=== PATIENT | male | born 1955 | race Caucasian/White ===

== ENCOUNTER → 2017-12-10 | Outpatient (CLI) | payer BC | LOC: FIMAGING 17:13 | PROVIDERS: ATTEND Family Medicine Sports Medicine | DX: S93.122A Dislocation of metatarsophalangeal joint of left great toe, initial encounter (principal); M19.072 Primary osteoarthritis, left ankle and foot ==

== ENCOUNTER 2018-09-28 14:50 | Emergency (ER) | payer BC ==
--- NOTE | 2018-09-28 14:56 | EDPHY ---
H & P Time Seen by Provider: 09/28/18 14:56 HPI/ROS: Chief complaint. Shortness of breath, chest pressure HPI. Patient is 63-year-old male presents emergency department with off and on chest pressure and shortness of breath for 1 week. The pressure is located behind the sternum. There is no radiation. He still has slight retrosternal chest discomfort now. He notes his symptoms are worse with exertion. Today he was feeling well this morning and then took the dog out to the dog park at noon and was throwing a ball. After 2 or 3 throws he developed pressure behind the sternum and shortness of breath. He also noted slight dizziness. He had a similar episode this past weekend in a walk with his when they were walking slowly he had no symptoms however in the last 100 yd the left the dog off the leash and the patient ran after the dog and then developed chest pressure shortness of breath. Again sitting down and resting relieves his symptoms. No similar symptoms previously no fever cough. No unusual leg pain or swelling. He did have a heart scan 2 years ago that he reports to be normal. He did take aspirin this morning. ROS 10 systems were reviewed and negative with the exception of the elements mentioned in the history of present illness Past Medical/Surgical History: Denies past medical history Family history both parents developed heart disease including his mom having an MS and coronary artery bypass graft that he describes in their later years Social History: , nonsmoker, no alcohol Smoking Status: Never smoked Physical Exam: General Appearance: Alert well-developed male mild distress vital signs initially show a blood pressure of 181/120. Current blood pressure is 108/69 Eyes: Pupils equal and round no pallor or injection. ENT, Mouth: Mucous membranes are moist. Respiratory: There are no retractions, lungs are clear to auscultation. Cardiovascular: Regular rate and rhythm. Gastrointestinal: Abdomen is soft and nontender, no masses, bowel sounds normal. Neurological: Awake and alert, sensory and motor exams grossly normal. Skin: Warm and dry, no rashes. Musculoskeletal: Neck is supple nontender. Extremities symmetrical, full range of motion. Psychiatric: Patient is oriented X 3, there is no agitation. Constitutional: Initial Vital Signs Temperature (C) 36.7 C 09/28/18 14:52 Heart Rate 81 09/28/18 14:52 Respiratory Rate 16 09/28/18 14:52 Blood Pressure 181/120 H 09/28/18 14:52 O2 Sat (%) 94 09/28/18 14:52 O2 Delivery Mode Room Air Allergies/Adverse Reactions: No Known Allergies Allergy (Unverified 09/28/18 14:52) Home Medications: Medication Instructions Recorded NK [No Known Home Meds] 09/28/18 Medical Decision Making - Diagnostics EKG Interpretation: EKG interpreted by me shows normal sinus rhythm normal interval. Left axis deviation. QRS is normal. Slight ST depression in leads V3 through V6. No arrhythmia. The rate is 79. No old EKGs for comparison Imaging Results: Imaging Impressions Chest X-Ray 09/28/18 15:19 Impression: Nothing acute identified. One-view chest x-ray interpreted by me is normal Procedures: IV normal saline, monitor ED Course/Re-evaluation: Re-evaluation 4:00 p.m. Patient is stable and without discomfort currently. The patient and I discussed EKG, chest x-ray, lab work findings. We discussed treatment plan and I recommended admission for this patient. We discussed risks and benefits of admission versus outpatient management. I explained that I was concerned that the patient was having symptoms with exertion relieved by rest and that this may well represent acute coronary syndrome. The patient does not wish to be admitted and understands the risks of this. I recommended that we repeat EKG and troponin this afternoon in the emergency department and he does not wish to do this as he has a dog in the car. Again I did explain why the repeat troponin and EKG are important. [address] Goldberg for Cardiology Re-evaluation and update again at 4:45 p.m.. Patient does not wish to wait for cardiology call back. He does not want repeat troponin or EKG. Again risks and benefits are explained to the patient. He expresses understanding and agreement 4:50 p.m. I did speak to Dr. Goldberg who also felt admission was the right course. I discussed this with the patient. Dr. Goldberg will see him in the office tomorrow. Differential Diagnosis: I think this likely angina that the patient is experiencing. There is no evidence for pneumonia. Symptoms are not consistent with pulmonary embolus. He has chest discomfort on exertion and relieved by rest. I have recommended admission however he does not wish to wait or be admitted - Data Points Laboratory Results: Laboratory Results 09/28/18 15:15 09/28/18 15:15 09/28/18 09/28/18 09/28/18 15:15 15:15 15:08 WBC 5.24 10^3/uL 10^3/uL (3.80-9.50) RBC 5.04 10^6/uL 10^6/uL (4.40-6.38) Hgb 15.9 g/dL g/dL (13.7-17.5) Hct 44.8 % % (40.0-51.0) MCV 88.9 fL fL (81.5-99.8) MCH 31.5 pg pg (27.9-34.1) MCHC 35.5 g/dL g/dL (32.4-36.7) RDW 12.6 % % (11.5-15.2) Plt Count 145 10^3/uL L 10^3/uL (150-400) MPV 12.8 fL H fL (8.7-11.7) Neut % (Auto) 43.5 % % (39.3-74.2) Lymph % (Auto) 42.2 % % (15.0-45.0) [place] % (Auto) 9.9 % % (4.5-13.0) Eos % (Auto) 3.4 % % (0.6-7.6) Baso % (Auto) 0.8 % % (0.3-1.7) Nucleat RBC Rel Count 0.0 % % (0.0-0.2) Absolute Neuts (auto) 2.28 10^3/uL 10^3/uL (1.70-6.50) Absolute Lymphs (auto) 2.21 10^3/uL 10^3/uL (1.00-3.00) Absolute Monos (auto) 0.52 10^3/uL 10^3/uL (0.30-0.80) Absolute Eos (auto) 0.18 10^3/uL 10^3/uL (0.03-0.40) Absolute Basos (auto) 0.04 10^3/uL 10^3/uL (0.02-0.10) Absolute Nucleated RBC 0.00 10^3/uL 10^3/uL (0-0.01) Immature Gran % 0.2 % % (0.0-1.1) Immature Gran # 0.01 10^3/uL 10^3/uL (0.00-0.10) Sodium 141 mEq/L mEq/L (135-145) Potassium 3.8 mEq/L mEq/L (3.3-5.0) Chloride 107 mEq/L mEq/L (97-110) Carbon Dioxide 27 mEq/l mEq/l (22-31) Anion Gap 7 mEq/L mEq/L (6-14) BUN 19 mg/dL mg/dL (7-23) Creatinine 0.9 mg/dL mg/dL (0.7-1.3) Estimated GFR > 60 Glucose 98 mg/dL mg/dL (70-100) Calcium 8.9 mg/dL mg/dL (8.5-10.4) POC Troponin I 0.00 ng/mL ng/mL (0.00-0.08) NT-Pro-B Natriuret Pep 49 pg/mL pg/mL (0-125) Point of Care Test Results: Chemistry 09/28/18 15:08 POC Troponin I 0.00 ng/mL ng/mL (0.00-0.08) Departure - Departure Disposition: Home, Routine, Self-Care Clinical Impression: Chest pain Qualifiers: Chest pain type: unspecified Qualified Code(s): R07.9 - Chest pain, unspecified Condition: Good Instructions: Chest Pain (ED) Additional Instructions: Easy activity until see cardiology. No activity that his strenuous or brings on chest discomfort. Return to the emergency department for worsening chest pain or shortness of breath. Call Cardiology tomorrow to arrange outpatient evaluation Referrals: Jon Stephens MD [Primary Care Provider] - As per Instructions Dane Goldberg MD [Medical Doctor] - 1 day without fail
[2018-09-28 15:25] LABS: PLATELET COUNT 145 10^3/uL (150-400)
[2018-09-28 16:27] VITALS: BP 156/99
--- NOTE | 2018-09-28 20:38 | CPEKG ---
Test Reason : OPEN Blood Pressure : / mmHG Vent. Rate : 079 BPM Atrial Rate : 079 BPM P-R Int : 167 ms QRS Dur : 103 ms QT Int : 379 ms P-R-T Axes : 031 -23 001 degrees QTc Int : 435 ms Sinus rhythm Borderline left axis deviation Low voltage, precordial leads Confirmed by Candido De León ([id number]) on 09/28/2018 8:38:01 PM Referred By: Confirmed By:Candido De León
== END 2018-09-28 17:18 | disposition home or self-care (01) ==
DX: R07.9 Chest pain, unspecified (principal); R06.02 Shortness of breath; Z82.49 Family history of ischemic heart disease and other diseases of the circulatory system
CPT/HCPCS: 84484-PO

== ENCOUNTER 2018-09-29 16:40 | Inpatient (IN) | payer BC ==
[2018-09-29] MEDS ORDERED: ACETAMINOPHEN 325 MG TAB PO PRN (16:56)
[2018-09-29] MEDS ORDERED: ONDANSETRON DISINTEGRATING 4 MG TAB PO PRN (16:56)
[2018-09-29] MEDS ORDERED: NITROGLYCERIN 0.4 MG BTL SL PRN (16:56)
[2018-09-29] MEDS ORDERED: ONDANSETRON 4 MG/2 ML VIAL IVP PRN (16:56)
[2018-09-29] MEDS ORDERED: TEMAZEPAM 15 MG CAP PO PRN (16:56)
[2018-09-29] MEDS ORDERED: ASPIRIN 325 MG TAB PO ONE (17:01)
[2018-09-29 18:25] LABS: PLATELET COUNT 162 10^3/uL (150-400)
[2018-09-29 18:40] LABS: INR 0.88 (0.83-1.16); PROTIME(PATIENT) 12.2 SEC (12.0-15.0)
[2018-09-29] MEDS: METOPROLOL TARTRATE 25 MG TAB PO SCH (20:50)
[2018-09-30] MEDS ORDERED: NS 1,000 ML IV ONE ×2 (06:00→11:00)
[2018-09-30] MEDS ORDERED: diphenhydrAMINE 25 MG CAP PO ONE (06:00)
[2018-09-30] MEDS ORDERED: DIAZEPAM 5 MG TAB PO ONE (06:00)
[2018-09-30] MEDS ORDERED: FAMOTIDINE 20 MG TAB PO ONE (06:00)
[2018-09-30] MEDS ORDERED: IOPAMIDOL (ISOVUE-370) 150 ML BTL IV ONE ×2 (07:55→09:31)
[2018-09-30] MEDS ORDERED: fentaNYL 100 MCG/2 ML INJ ONE ×2 (07:55→09:23)
[2018-09-30] MEDS ORDERED: LIDOCAINE 1% 300 MG/30 ML SDV ONE (07:55)
[2018-09-30] MEDS ORDERED: MIDAZOLAM 2 MG/2 ML VIAL ONE ×2 (07:55→09:23)
--- NOTE | 2018-09-30 08:20 | PDPROPOC ---
Sedation Plan of Care Sedation Plan of Care: vital signs stable, mental status noted, patient educated of risks, benefits, alternatives, patient can tolerate sedation ASA Classification: ASA 2 Planned drugs: fentanyl, midazolam Mallampati Score: Class 2 Mallampati Reference Image: Patient passed 3-3-2 rule?: Yes
--- NOTE | 2018-09-30 08:21 | PDHPUP ---
History & Physical Update H&P update statement: This history and physical update is based on an assessment of the patient which was completed after admission or registration (within 24 hours), but prior to the surgery/procedure. H&P update: H&P reviewed & patient examined, no change in patient's condition since H&P completed
[2018-09-30] MEDS ORDERED: BIVALIRUDIN 250 MG/5 ML VIAL IV ONE ×2 (08:51→09:39)
[2018-09-30] MEDS ORDERED: ASPIRIN EC 325 MG TAB PO SCH (09:00)
[2018-09-30] MEDS ORDERED: ATROPINE SULFATE 1 MG/10 ML SYR ONE ×2 (09:27→18:37)
[2018-09-30] MEDS ORDERED: EPINEPHrine 1 MG/10 ML SYR IVP ONE (09:27)
[2018-09-30] MEDS ORDERED: NITROGLYCERIN/D5W 50 MG/250 ML BOTTLE IV ONE ×2 (09:28→10:56)
[2018-09-30] MEDS ORDERED: LABETALOL HCL 5 MG/ML 20 ML MDV ONE (09:34)
[2018-09-30] MEDS ORDERED: PROTAMINE SULFATE 50 MG/5 ML VIAL IVP ONE (10:54)
[2018-09-30] MEDS ORDERED: MILRINONE/DEXTROSE/100 ML BAG IV ONE (10:54)
[2018-09-30] MEDS ORDERED: CALCIUM CHLORIDE 1 GM/10 ML INJ ONE ×2 (10:54→10:56)
[2018-09-30] MEDS ORDERED: niCARdipine/NACL/200 ML BAG IV ONE (10:55)
[2018-09-30] MEDS ORDERED: ADENOSINE 6 MG/2 ML VIAL ONE (10:55)
[2018-09-30] MEDS ORDERED: AMIODARONE HCL 150 MG/3 ML VIAL ONE ×2 (10:55→10:57)
[2018-09-30] MEDS ORDERED: DOPamine/DEXTROSE 400 MG/250 ML BAG IV ONE (10:55)
[2018-09-30] MEDS ORDERED: HEPARIN 10,000 UNIT/10 ML MDV (1,000 UNIT/ML) ONE ×2 (10:55→10:56)
[2018-09-30] MEDS ORDERED: NA BICARBONATE 50 MEQ/50 ML VIAL ONE (10:55)
[2018-09-30] MEDS ORDERED: ALBUMIN 5% 250 ML BOTTLE IV ONE ×2 (10:56→11:58)
[2018-09-30] MEDS ORDERED: ceFAZolin 1 GM VIAL ONE (10:56)
[2018-09-30] MEDS ORDERED: LIDOCAINE 2% 100 MG/5 ML SYR ONE (10:56)
[2018-09-30] MEDS ORDERED: CITRATE DEXTROSE SOLN 500 ML BAG ONE (10:56)
[2018-09-30] MEDS ORDERED: methylPREDNISolone SOD SUCC 1 GM/8 ML VIAL ONE (10:57)
[2018-09-30] MEDS ORDERED: MAGNESIUM SULFATE 1 GM/2 ML VIAL ONE (10:57)
[2018-09-30] MEDS ORDERED: AMINOCAPROIC ACID 5 GM/20 ML VIAL IV ONE (11:00)
[2018-09-30] MEDS ORDERED: CITRATE DEXTROSE SOLN 500 ML BAG MISC ONE (11:00)
[2018-09-30] MEDS ORDERED: CARDIOPLEGIA DEL NIDO SOLN 1,052.8 ML PF ONE (11:00)
[2018-09-30] MEDS ORDERED: MANNITOL 25% 12.5 GM/50 ML VIAL IVP ONE (11:00)
[2018-09-30] MEDS ORDERED: VERAPAMIL 5 MG, NITROGLYCERIN 2.5 MG, HEPARIN 500 UNIT, SODIUM BICARBONATE 0.2 MEQ in L... MISC ONE ×2 (11:00→12:12)
[2018-09-30] MEDS ORDERED: NOREPINEPHRINE BITARTRATE 16 MG in NS 250 ML IV ONE (11:00)
[2018-09-30] MEDS ORDERED: SODIUM BICARBONATE 20 MEQ, LIDOCAINE 1% 10 ML in NORMOSOL-R 1,000 ML MISC ONE (11:00)
[2018-09-30] MEDS ORDERED: INSULIN REGULAR HUMAN 100 UNIT in NS 100 ML IV ONE (11:00)
[2018-09-30] MEDS ORDERED: ceFAZolin 2 GM/DEXTROSE 100 ML IV ONE (11:00)
[2018-09-30] MEDS ORDERED: LIDOCAINE 1% 5 ML SDV ID PRN (11:00)
[2018-09-30] MEDS ORDERED: PHENYLEPHRINE HCL 50 MG in NS 250 ML IV ONE (11:00)
--- NOTE | 2018-09-30 11:34 | ASMTCMCOM ---
CM Note CM Note Notes: 09/30/2018 Case Management Note Pt admitted with CP. Attempted to meet w/pt however pt was off the floor in the cath lab technologist. Discussed d/c needs briefly with , none were identified d/t pt family support and independence with ADL's prior to admission. There are no therapy evals ordered at this time. Case Management d/c poc: anticipating home with follow up as directed. Case Management available if needs change. Date Signed: 09/30/2018 11:34 AM Electronically Signed By:Pamella Mak RN
--- NOTE | 2018-09-30 11:47 | PDHPUP ---
History & Physical Update H&P update statement: Asked to urgently evaluate this 63 year old for CABG. He was in skilled labor for treatment of high grade RCA lesion Flow is kolton 2 and pt has had unstable angina Lesion could not be crossed due to tortuosity Agree with need for urgent revascularization. Met with patient who is somewhat sedate and his . Risks, benefits alternatives reviewed Plan emergent single vessel CABG, SVG to RCA.
[2018-09-30] MEDS ORDERED: fentaNYL 250 MCG/5 ML INJ ONE (11:50)
[2018-09-30] MEDS ORDERED: PROPOFOL/EMULSION 500 MG/50 ML BOTTLE IV ONE (11:52)
[2018-09-30] MEDS ORDERED: DEXAMETHASONE 4 MG/ML VIAL ONE ×2 (11:53)
[2018-09-30] MEDS ORDERED: ESMOLOL HCL 100 MG/10 ML VIAL IV ONE (11:53)
[2018-09-30] MEDS ORDERED: PAPAVERINE HCL 60 MG/2 ML SDV ONE (11:54)
--- NOTE | 2018-09-30 11:57 | CPIP ---
DATE OF PROCEDURE: 09/30/2018 PROCEDURE: 1. Coronary angiography. 2. Attempted percutaneous coronary intervention of right coronary artery. INDICATION: cute coronary syndrome. ACCESS: Patient was prepped and draped in sterile fashion. 1% lidocaine was used to anesthetize the right inguinal region. A 6-Citizen [place] introducer sheath was placed selectively into the right common fe moral artery via modified Seldinger technique. The 6-Citizen [place] introducer sheath was later exchanged fo r a 7-Citizen [place] introducer sheath via exchange wire technique. CORONARY ANGIOGRAPHY: A 6-Citizen [place] JL4 was advanced to the left main coronary artery and images obtain ed. The left main coronary artery bifurcated into an LAD and circumflex coronary arteries. The left main coronary artery appeared normal. The left anterior descending coronary artery gave rise to 2 d iagonal branches. The left anterior descending coronary artery had mild diffuse disease in the mid v essel. There was no stenosis greater than 15%. The diagonal arteries were free of any significant d isease. The circumflex coronary artery was a large vessel, but was nondominant. Circumflex coronary artery was ectatic in the mid vessel. There was no evidence of significant flow limitation. 6-Citizen [place] JR4 was advanced to the right coronary artery and images obtained. The right coronary arter y was torturous. The right coronary artery had a single discrete 99% stenosis in the mid vessel. Th ere was MAGUI 2 flow distally. PERCUTANEOUS CORONARY INTERVENTION OF THE RIGHT CORONARY ARTERY: A 7-Citizen [place] AR1 catheter was advance d to the right coronary artery and images obtained and angiography confirmed the presence of high-gra de disease involving the proximal right coronary artery. Several attempts were made at trying to pass a Luge wire into the distal vessel. These were unsucces sful. Several attempts were made at trying to pass a Documentation Lead 150 into the distal vessel. These too we re unsuccessful. A turnpike catheter was then advanced over the Documentation Lead 150 to provide additional supp ort. Several attempts were made at trying to pass the Documentation Lead 150 into the distal vessel. These were unsuccessful. The Documentation Lead 150 was then exchanged for a Kinetix wire. The Kinetix wire was also unsucc essful. The Kinetix wire was then exchanged for a Luge wire. The Luge wire additionally was unsucce ssful. The Luge wire was then exchanged for a Fielder XT wire. The Fielder XT wire went subintimal in the right coronary artery and was unsuccessful in crossing into the distal vessel. The Fielder XT was then exchanged for a PT floppy wire. The PT floppy wire was also unsuccessful in crossing into the distal vessel. The patient had MAGUI 1.5 flow at this time, likely secondary to subintimal hemato ma. It was decided to halt intervention and to discuss surgical revascularization. COMPLICATIONS: None. CONCLUSIONS: 1. Single-vessel coronary artery disease. 2. Unable to cross the proximal right coronary artery lesion, secondary to excessive tortuosity. 3. Plan is for surgical evaluation. /[id number]/MODL
--- NOTE | 2018-09-30 12:01 | ECHO ---
[email or web address] [address] [address] Main: [phone] Fax: Transthoracic Echocardiogram Name: EARL MORA MR#: [id number] Study Date: 09/30/2018 Study Time: 10:58 AM Date of : 1955 Age: 63 year(s) Height: 172.7 cm (68 in.) Weight: 90.72 kg (200 lb.) BSA: 2.04 m2 Gender: Male Examination: Echo Indication: Eval cardiac valves/EF Image Quality: Contrast: Requested by: Maxim Gonzalez BP: / Heart Rate: Rhythm: Indication: Eval cardiac valves/EF Procedure Staff Manager Business Continuity: Lindsey Alvarez RDCS Reading Physician: Earl Goldberg MD Requesting Provider: Conclusions: Normal size left ventricle. No LV hypertrophy. Low normal left ventricular systolic function. The ejection fraction is estimated to be 50-55 %. The basal anterior, basal anteroseptal, basal inferoseptal, mid anteroseptal and mid inferoseptal wall segments are hypokinetic. Grade 1 diastolic dysfunction (abnormal relaxation). Mildly dilated right ventricle. Mildly reduced RV function. The pulmonary artery pressure is normal. No pericardial effusion. Measurements: Chambers Valvular Assessment AV/MV Valvular Assessment TV/PV Normal Normal Normal Name Value Range Name Value Range Name Value Range Ao Marybeth (MM): 3.7 cm (2.2 cm-3.7 AV Vmax: 1.03 m/s (1 m/s-1.7 TR Vmax: 1.60 mm/s ( - ) cm) m/s) TR PGmax: 10 mmHg ( - ) IVSd (2D): 0.8 cm (0.6 cm-1.1 AV meanP mmHg ( - ) syst. PAP: 15 mmHg ( - ) cm) MV E Vmax: 0.55 m/s ( - ) LVDd (2D): 5.3 cm (4.2 cm-5.9 MV A Vmax: 0.71 m/s ( - ) cm) MV E/A: 0.77 ( - ) LVPWd (2D): 0.9 cm (0.6 cm-1 cm) LVEF (BP): 61 % (>=55 %) EF Range: 50-55 % Continued Measurements: Chambers Valvular Assessment AV/MV Valvular Assessment TV/PV Patient: EARL MORA Study Date: 09/30/2018 Page 1 of 2 10:58 AM Name Value Name Value Name Value LADs: 3.5 cm MV E' Septal: 0.05 m/s CVP (est.): 5 mmHg LADs Lon.1 cm MV E/E' Septal: 10.40 LA Area: 15.9 cm2 MV E/E' Lateral: 8.50 LA Volume: 39 ml LA Volume Index: 19.1 ml/m2 Findings: Left Ventricle: Normal size left ventricle. No LV hypertrophy. Low normal left ventricular systolic function. The ejection fraction is estimated to be 50-55 %. The basal anterior, basal anteroseptal, basal inferoseptal, mid anteroseptal and mid inferoseptal wall segments are hypokinetic. All remaining scored wall segments are normal. Grade 1 diastolic dysfunction (abnormal relaxation). Right Ventricle: Mildly dilated right ventricle. Mildly reduced RV function. Left Atrium: The left atrium is normal in size. Right Atrium: The right atrium is normal in size. Mitral Valve: The mitral valve is normal in appearance and function. Trivial mitral valve regurgitation. Aortic Valve: The aortic valve is normal in appearance and function. The aortic valve is tri-leaflet. Tricuspid Valve: The tricuspid valve is normal in appearance and function. Trivial tricuspid valve regurgitation. The pulmonary artery pressure is normal. Pulmonic Valve: The pulmonic valve is normal in appearance and function. Aorta: The aorta is normal. Pericardium: No pericardial effusion. Fat pad visualized near apex.. (No Signature Object) Wall Motion Scores -1 - Not Scored, 0 - Unknown, 1 - Normal or hyperkinesia, 2 - Hypokinesia, 3 - Akinesia, 4 - Dyskinesia, 5 - Aneurysm Patient: EARL MORA Study Date: 09/30/2018 Page 2 of 2 10:58 AM [id number]
[2018-09-30] MEDS ORDERED: KETAMINE 200 MG/20 ML VIAL ONE (12:23)
[2018-09-30] MEDS ORDERED: ePHEDrine SULFATE 25 MG/5 ML SYR ONE ×2 (14:21)
[2018-09-30] MEDS ORDERED: PANTOPRAZOLE SODIUM 40 MG VIAL IVP ONE (14:36)
[2018-09-30] MEDS ORDERED: fentaNYL 100 MCG/2 ML INJ IVP PRN (14:36)
[2018-09-30] MEDS ORDERED: MAGNESIUM HYDROXIDE 30 ML UDCUP PO PRN (14:36)
[2018-09-30] MEDS ORDERED: POLYETHYLENE GLYCOL 3350 17 GM PKT PO PRN (14:36)
[2018-09-30] MEDS ORDERED: CEPACOL LOZENGE PO PRN (14:36)
[2018-09-30] MEDS ORDERED: LACTULOSE 20 GM/30 ML UDCUP PO PRN (14:36)
[2018-09-30] MEDS ORDERED: SODIUM CL NASAL 45 ML BTL EACHNARE PRN (14:36)
[2018-09-30] MEDS ORDERED: METOCLOPRAMIDE 10 MG/2 ML VIAL IVP PRN (14:36)
[2018-09-30] MEDS ORDERED: ALBUMIN 5% 250 ML IV PRN (14:36)
[2018-09-30] MEDS ORDERED: D50W 25 GM/50 ML SYR IVP PRN (14:36)
[2018-09-30] MEDS ORDERED: ACETAMINOPHEN 650 MG SUPP PR PRN (14:36)
[2018-09-30] MEDS ORDERED: BISACODYL 10 MG SUPP PR PRN (14:36)
[2018-09-30] MEDS ORDERED: MEPERIDINE 25 MG/0.5 ML AMP IVP PRN (14:36)
[2018-09-30] MEDS ORDERED: niCARdipine/NACL 200 ML IV PRN (14:36)
[2018-09-30] MEDS ORDERED: NS 1,000 ML IV SCH (14:45)
[2018-09-30] MEDS ORDERED: oxyCODONE IR 5 MG TAB PO PRN (14:46)
--- NOTE | 2018-09-30 14:57 | PDANEPAE ---
ANE History of Present Illness here for emergent cabg ANE Past Medical History - Cardiovascular History Hx Hypertension: No Hx Arrhythmias: No Hx Chest Pain: Yes Hx Coronary Artery / Peripheral Vascular Disease: Yes Hx CHF / Valvular Disease: No Hx Palpitations: No - Pulmonary History Hx COPD: No Hx Asthma/Reactive Airway Disease: No Hx Recent Upper Respiratory Infection: No Hx Oxygen in Use at Home: No Hx Sleep Apnea: No - Endocrine History Hx Diabetes: No Hypothyroid: No Hyperthyroid: No - Renal History Hx Renal Disorders: No - Liver History Hx Hepatic Disorders: No - Chronic Pain History Chronic Pain: No ANE Review of Systems Review of systems is: negative Review of Systems: - Exercise capacity Exercise capacity: >=4 METS ANE Patient History - Allergies Allergies/Adverse Reactions: No Known Allergies Allergy (Unverified 09/28/18 14:52) - Home Medications Home medications: home medication list seen and reviewed Home Medications: NK [No Known Home Meds] 09/29/18 [Last Taken Unknown] - NPO status NPO Status: no food or drink >8 hours - Anes Hx Anes Hx: no prior problems - Smoking Hx Smoking Status: Never smoked ANE Labs/Vital Signs - Labs Result Diagrams: 09/29/18 18:15 09/29/18 18:15 - Vital Signs Vital Signs: reviewed preoperatively; see RN documention for details Blood Pressure: 126/86 Heart Rate: 63 Respiratory Rate: 12 O2 Sat (%): 96 Height: 172.72 cm Weight: 93.2 kg ANE Physical Exam - Airway Neck exam: FROM Mallampati Score: Class 1 Mouth exam: normal dental/mouth exam - Pulmonary Pulmonary: no respiratory distress - Cardiovascular Cardiovascular: regular rate and rhythym - ASA Status ASA Status: IV, E ANE Anesthesia Plan Anesthesia Plan: general endotracheal anesthesia Lines/Monitors: central line
--- NOTE | 2018-09-30 14:57 | POSTANESTH ---
Post Anesthetic Evaluation Cardiovascular Status: Normal, Stable Respiratory Status: Normal, Stable Level of Consciousness/Mental Status: Unconscious Pain Control: Adequate, Prn Tx Ordered Nausea/Vomiting Control: Adequate, Prn Tx Ordered Complications Possibly Related to Anesthesia: None Noted
[2018-09-30] MEDS ORDERED: INSULIN REGULAR HUMAN 100 UNIT in NS 100 ML IV SCH (15:00)
[2018-09-30] MEDS: METOPROLOL TARTRATE 25 MG TAB PO SCH (15:16)
[2018-09-30] MEDS: POTASSIUM Cl (KCl) 50 ML IV PRN ×4 (15:39→20:19)
--- NOTE | 2018-09-30 16:35 | PDMN ---
Medical Necessity Medical necessity: Change to inpt as of 09/30/18 @ 1446. Pt meets inpt criteria per MD order and [facility] [place] Coronary Artery Bypass Graft (CABG), Medicare inpt only surg list, 4 days. 63 y/o w/single vessel coronary artery disease, unsuccessful percutaneous coronary intervention of right coronary artery requiring emergent CABG.
[2018-09-30] MEDS ORDERED: SODIUM BICARBONATE 50 MEQ/50 ML SYR ONE (17:05)
[2018-09-30] MEDS ORDERED: NA BICARBONATE 50 MEQ/50 ML VIAL IV ONE (17:30)
[2018-09-30] MEDS ORDERED: SODIUM BICARBONATE 50 MEQ/50 ML SYR IV ONE (17:30)
[2018-09-30 19:44] LABS: INR 1.16 (0.83-1.16)
[2018-09-30] MEDS: ceFAZolin 2 GM/DEXTROSE 100 ML IV SCH (20:02)
[2018-09-30] MEDS ORDERED: CHLORHEXIDINE GLUC HIBICLENS 118 ML BTL TP SCH (21:00)
[2018-09-30] MEDS: MUPIROCIN 2% 1 APP/GM OINT *BID NS SCH (22:20)
--- NOTE | 2018-09-30 23:10 | CPEKG ---
Test Reason : OPEN Blood Pressure : / mmHG Vent. Rate : 052 BPM Atrial Rate : 067 BPM P-R Int : 274 ms QRS Dur : 103 ms QT Int : 466 ms P-R-T Axes : 000 -08 011 degrees QTc Int : 434 ms Sinus Rhythm with Second degree AV block Sinus pause with ventricular paced escape Low voltage, precordial leads Borderline T abnormalities, inferior leads Confirmed by Misael Holliday ([id number]) on 09/30/2018 11:09:57 PM Referred By: Confirmed By:Misael Holliday
--- NOTE | 2018-10-01 01:37 | GOP ---
DATE OF OPERATION: 09/30/2018 SURGEON: Serge Sorenson MD MANAGING BROKER: Myah Lindo, NAVI. PREOPERATIVE DIAGNOSIS: Subtotal occlusion of right coronary artery with acute coronary syndrome. POSTOPERATIVE DIAGNOSIS: Subtotal occlusion of right coronary artery with acute coronary syndrome. PROCEDURE PERFORMED: 1. Emergency single-vessel coronary artery bypass grafting with saphenous vein graft from the aorta to right coronary artery. 2. Endoscopic vein harvest from the left lower leg. FINDINGS: The pericardial space was free. The vein was a good quality 4 mm vessel. The right coron sun artery itself was diffusely diseased and calcified throughout its length; however, the lumen was a good, 3 mm vessel. INDICATIONS: The patient is a 63-year-old gentleman with a history of unstable angina. He was recen tly in the emergency department, but discharged and then returned to the clinic with signs and sympto ms of acute coronary syndrome. He was taken to the medical lab technologist and found to have subtotal occlusion of his right coronary artery. They were unable to cross the lesion with the wire and therefore, the pat ient was referred for revascularization. The patient was taken directly from the medical lab technologist to the ope rating room. DESCRIPTION OF PROCEDURE: The patient was taken to the operating room and placed on the operating ta ble in the supine position. After induction of general anesthesia and single-lumen endotracheal tube intubation, the patient was prepped and draped in sterilely. Saphenous vein was harvested from the lower part of the left leg using a minimally invasive endoscopic technique. The chest was opened by a median sternotomy and the patient was fully heparinized. he was cannulated with a Carmen 8.0 Soft Flow aortic cannula as well as a dual-stage right atrial cannula. Cardiopulmonary bypass was instit uted. The cross-clamp was applied and the heart was arrested with 1 L of [place] solution. The dis robin right coronary was dissected, opened, probed, and anastomosed end-to-side to the vein graft with running 7-0 Prolene. The cross-clamp was then removed and a partial occlusion clamp was placed. The vein graft was anastomosed end-to-side with the ascending aorta using running 6-0 Prolene. This was deaired and allowed to flow freely. The mediastinal and right pleural chest tubes were placed. The patient was then from bypass without difficulty. Two ventricular pacing wires were also p laced. We paced the patient at a rate of 80 because of some sinus bradycardia. Next, the protamine was administered and the patient was decannulated. All the cannulation sites wer e doubly secured with a Prolene suture and after hemostasis had been achieved, the heart was covered with pericardium and fat, and the chest was closed with #6 stainless steel wires. Subcutaneous tissu e and skin were closed with running Vicryl suture. The patient tolerated the procedure well. /[id number]/MODL
[2018-10-01] MEDS: ceFAZolin 2 GM/DEXTROSE 100 ML IV SCH ×3 (04:15→20:21)
[2018-10-01 04:45] LABS: PLATELET COUNT 121 10^3/uL (150-400)
--- NOTE | 2018-10-01 06:07 | SOAPPROG ---
SOAP Progress Note Assessment/Plan: POD #1: CABGx1 (SVG-RCA), EVH L Subacute occlusion of RCA with ACS s/p emergent CABGx1 - AL/FC out - CTs with 125 cc/12 hours - possible removal later today - Transfer to PCU Acute blood loss anemia - Stable without the need for transfusions Subjective: Denies pain/SOB. Objective: Vital Signs Temp Pulse Resp BP Pulse Ox 36.4 C 67 18 113/68 91 L 10/01/18 04:00 10/01/18 06:00 10/01/18 06:00 10/01/18 06:00 10/01/18 06:00 Laboratory Results 10/01/18 04:05 10/01/18 04:05 09/30/18 10/01/18 10/02/18 05:59 05:59 05:59 Intake Total 1218.7 Output Total 2448 Balance -1229.3 PT 15.0 SEC (12.0-15.0) 09/30/18 19:13 INR 1.16 (0.83-1.16) 09/30/18 19:13 Physical Exam - Physical Exam General Appearance: WD/WN, alert, no apparent distress EENT: No scleral icterus (R), No scleral icterus (L) Neck: carotid bruit Respiratory: No respiratory distress Cardiac/Chest: regular rate, rhythm Abdomen: non-tender, soft, No distended Skin: normal color, warm/dry Extremities: No pedal edema Neuro/Psych: no motor/sensory deficits, alert, normal mood/affect, oriented x 3 ICD10 Worksheet Patient Problems: Problems Problem Status Onset ACS (acute coronary syndrome) Acute Acute blood loss anemia Acute CAD in [place] artery Acute S/P CABG x 1 Acute ~09/30/18
[2018-10-01] MEDS ORDERED: traMADol 50 MG TAB PO PRN (07:15)
[2018-10-01] MEDS: PANTOPRAZOLE SODIUM 40 MG TAB PO SCH (08:54)
[2018-10-01] MEDS: ASPIRIN 81 MG CHEWABLE TAB PO SCH (08:54)
[2018-10-01] MEDS: MUPIROCIN 2% 1 APP/GM OINT *BID NS SCH ×2 (08:55→20:26)
[2018-10-01] MEDS ORDERED: ASPIRIN 81 MG CHEWABLE TAB TUBE PRN (09:00)
[2018-10-01] MEDS: SENNOSIDES/DOCUSATE SODIUM TAB PO SCH (20:21)
[2018-10-01] MEDS: METOPROLOL TARTRATE 25 MG TAB PO SCH (20:23)
[2018-10-01] MEDS: HYDROCODONE/APAP 5/325 TAB PO PRN (20:29)
[2018-10-02] MEDS: HYDROCODONE/APAP 5/325 TAB PO PRN (05:39)
[2018-10-02] MEDS: ceFAZolin 2 GM/DEXTROSE 100 ML IV SCH (05:39)
[2018-10-02 06:21] LABS: PLATELET COUNT 96 10^3/uL (150-400)
--- NOTE | 2018-10-02 06:58 | SOAPPROG ---
SOAP Progress Note Assessment/Plan: POD #2: CABGx1 (SVG-RCA), EVH L Subacute occlusion of RCA with ACS s/p emergent CABGx1 - BB/ASA/statin for secondary prevention - AL/FC out/CTs out - PT/OT Acute blood loss anemia - Stable without the need for transfusions DVT prophylaxis - SCDs only Disposition - Home Friday or Friday with outpatient rehab services Subjective: Feels well. Denies pain/SOB. Objective: Vital Signs Temp Pulse Resp BP Pulse Ox 36.8 C 70 16 143/84 H 96 10/02/18 04:00 10/02/18 04:00 10/02/18 04:00 10/02/18 04:00 10/02/18 04:00 Laboratory Results 10/02/18 05:50 10/02/18 05:50 10/01/18 10/02/18 10/03/18 05:59 05:59 05:59 Intake Total 1218.7 1650 Output Total 2448 605 Balance -1229.3 1045 PT 15.0 SEC (12.0-15.0) 09/30/18 19:13 INR 1.16 (0.83-1.16) 09/30/18 19:13 Physical Exam - Physical Exam General Appearance: WD/WN, alert, no apparent distress EENT: No scleral icterus (R), No scleral icterus (L) Neck: normal inspection Respiratory: No respiratory distress Cardiac/Chest: regular rate, rhythm Abdomen: non-tender, soft, No distended Skin: normal color, warm/dry Extremities: pedal edema Neuro/Psych: no motor/sensory deficits, alert, normal mood/affect, oriented x 3 ICD10 Worksheet Patient Problems: Problems Problem Status Onset ACS (acute coronary syndrome) Acute Acute blood loss anemia Acute CAD in [place] artery Acute S/P CABG x 1 Acute ~09/30/18
[2018-10-02] MEDS ORDERED: FUROSEMIDE 20 MG/2 ML VIAL IVP ONE (07:27)
[2018-10-02] MEDS: LISINOPRIL 5 MG TAB PO SCH (08:43)
[2018-10-02] MEDS: ATORVASTATIN CALCIUM 20 MG TAB PO SCH (08:43)
[2018-10-02] MEDS: SENNOSIDES/DOCUSATE SODIUM TAB PO SCH ×2 (08:43→20:34)
[2018-10-02] MEDS: ASPIRIN 81 MG CHEWABLE TAB PO SCH (08:43)
[2018-10-02] MEDS: METOPROLOL TARTRATE 25 MG TAB PO SCH ×2 (08:43→20:34)
[2018-10-02] MEDS: PANTOPRAZOLE SODIUM 40 MG TAB PO SCH (08:44)
[2018-10-02] MEDS: MUPIROCIN 2% 1 APP/GM OINT *BID NS SCH (08:45)
--- NOTE | 2018-10-02 11:54 | SOAPPROG ---
JS Progress Note Assessment/Plan: 1. CAD - Pt presented with crescendo angina. angiogram demonstrated single vessel disease involving a tortuous large RCA. PCI was attempted but was unsuccessful secondary to tortuosity. Pt taken urgently to surgery and treated with CABG x 1. Pt denies symptoms of angina and CHF. Telemetry with no significant arrhythmias. --> Continue asa, metoprolol, and atorvastatin. --> Start lisinopril --> Reviewed importance of medications with patient and his . Subjective: No chest pain ambulating around room + sternal pain No orthopnea or PND Tele - no significant arrhythmias. Objective: Vital Signs Temp Pulse Resp BP Pulse Ox 36.7 C 76 17 102/62 94 10/02/18 11:20 10/02/18 11:20 10/02/18 11:20 10/02/18 11:20 10/02/18 11:20 Laboratory Results 10/02/18 05:50 10/02/18 05:50 10/01/18 10/02/18 10/03/18 05:59 05:59 05:59 Intake Total 1218.7 1650 240 Output Total 2448 605 425 Balance -1229.3 1045 -185 PT 15.0 SEC (12.0-15.0) 09/30/18 19:13 INR 1.16 (0.83-1.16) 09/30/18 19:13 Physical Exam - Physical Exam General Appearance: alert, no apparent distress Respiratory: lungs clear Cardiac/Chest: regular rate, rhythm Extremities: No pedal edema Neuro/Psych: alert, oriented x 3 ICD10 Worksheet Patient Problems: Problems Problem Status Onset ACS (acute coronary syndrome) Acute Acute blood loss anemia Acute CAD in [place] artery Acute S/P CABG x 1 Acute ~09/30/18
--- NOTE | 2018-10-02 14:19 | ASMTCMCOM ---
CM Note CM Note Notes: Pts case reviewed and discussed w/ NEMO Rivas. Pt had a CABG x1. PT/OT are recommending outpatient rehab follow up. Per Gurinder's note pt will d/c on Friday or Friday without any needs. CM available for changes. Plan: Independent Date Signed: 10/02/2018 02:15 PM Electronically Signed By:ANNE Rogers
[2018-10-03] MEDS: HYDROCODONE/APAP 5/325 TAB PO PRN (00:09)
[2018-10-03] MEDS: METOPROLOL TARTRATE 25 MG TAB PO SCH ×2 (09:30→21:09)
[2018-10-03] MEDS: ATORVASTATIN CALCIUM 20 MG TAB PO SCH (09:30)
[2018-10-03] MEDS: ASPIRIN 81 MG CHEWABLE TAB PO SCH (09:31)
[2018-10-03] MEDS: LISINOPRIL 5 MG TAB PO SCH (09:31)
[2018-10-03] MEDS: PANTOPRAZOLE SODIUM 40 MG TAB PO SCH (09:32)
[2018-10-03] MEDS: SENNOSIDES/DOCUSATE SODIUM TAB PO SCH ×2 (09:32→21:10)
--- NOTE | 2018-10-03 11:35 | SOAPPROG ---
SOAP Progress Note Assessment/Plan: POD #3: CABGx1 (SVG-RCA), EVH L Subacute occlusion of RCA with ACS s/p emergent CABGx1 - BB/ASA/statin for secondary prevention - AL/FC out/CTs out - PT/OT Acute blood loss anemia - Stable without the need for transfusions Secondary thrombocytopenia d/t CPB - Plt 96k (121k) - Will follow DVT prophylaxis - SCDs only Constipation - Continue bowel protocol - Suppository tonight if still no BM - Encourage ambulation Disposition - Home tomorrow with outpatient rehab services Subjective: Patient reports tossing and turning last night because could not get comfortable. Reports good pain control. Objective: Vital Signs Temp Pulse Resp BP Pulse Ox 36.8 C 77 14 128/74 H 93 10/03/18 04:00 10/03/18 07:18 10/03/18 07:18 10/03/18 09:30 10/03/18 10:04 Laboratory Results 10/02/18 05:50 10/02/18 05:50 10/02/18 10/03/18 10/04/18 05:59 05:59 05:59 Intake Total 1650 1750 Output Total 605 1255 Balance 1045 495 PT 15.0 SEC (12.0-15.0) 09/30/18 19:13 INR 1.16 (0.83-1.16) 09/30/18 19:13 Physical Exam - Physical Exam General Appearance: WD/WN, alert, no apparent distress Neck: supple Respiratory: lungs clear, normal breath sounds, decreased breath sounds (bases) , other (no wheezing, rhonchi, rales.) Cardiac/Chest: regular rate, rhythm, other (no murmurs, rubs, gallops. sternum stable, sternotomy c/d/i. ) Abdomen: normal bowel sounds, non-tender, soft Skin: normal color, warm/dry Extremities: other (warm, mild lower extremity edema. left leg incision c/d/i. ) Neuro/Psych: alert, normal mood/affect, oriented x 3 ICD10 Worksheet Patient Problems: Problems Problem Status Onset ACS (acute coronary syndrome) Acute Acute blood loss anemia Acute CAD in [place] artery Acute S/P CABG x 1 Acute ~09/30/18
[2018-10-03] MEDS ORDERED: BISACODYL 10 MG SUPP PR ONE (17:00)
--- NOTE | 2018-10-04 07:28 | SOAPPROG ---
SOAP Progress Note Assessment/Plan: POD #4: CABGx1 (SVG-RCA), EVH L Subacute occlusion of RCA with ACS s/p emergent CABGx1 - BB/ASA/statin for secondary prevention - AL/FC out/CTs out - PT/OT Acute blood loss anemia - Stable without the need for transfusions Secondary thrombocytopenia d/t CPB - Improving with plt 134k (96k) DVT prophylaxis - SCDs only Constipation - Resolved Disposition - Home today with outpatient rehab services Subjective: Patient without complaints. Reports good pain control. Objective: Vital Signs Temp Pulse Resp BP Pulse Ox 36.7 C 79 20 137/80 H 93 10/04/18 04:00 10/04/18 04:00 10/04/18 04:00 10/04/18 04:00 10/04/18 04:00 Laboratory Results 10/02/18 05:50 10/03/18 10/04/18 10/05/18 05:59 05:59 05:59 Intake Total 1750 560 Output Total 1255 Balance 495 560 PT 15.0 SEC (12.0-15.0) 09/30/18 19:13 INR 1.16 (0.83-1.16) 09/30/18 19:13 Physical Exam - Physical Exam General Appearance: WD/WN, alert, no apparent distress Neck: supple Respiratory: lungs clear, normal breath sounds, other (no wheezing, rhonchi, rales. ) Cardiac/Chest: regular rate, rhythm, other (No murmurs, rubs, gallops. Sternum stable, sternotomy c/d/i. ) Abdomen: normal bowel sounds, non-tender, soft Skin: normal color, warm/dry Extremities: other (Warm, minimal lower extremity edema. ) Neuro/Psych: alert, normal mood/affect, oriented x 3 ICD10 Worksheet Patient Problems: Problems Problem Status Onset ACS (acute coronary syndrome) Acute Acute blood loss anemia Acute CAD in [place] artery Acute S/P CABG x 1 Acute ~09/30/18
[2018-10-04 08:01] VITALS: BP 137/90
[2018-10-04] MEDS: ATORVASTATIN CALCIUM 20 MG TAB PO SCH (08:28)
[2018-10-04] MEDS: LISINOPRIL 5 MG TAB PO SCH (08:28)
[2018-10-04] MEDS: PANTOPRAZOLE SODIUM 40 MG TAB PO SCH (08:28)
[2018-10-04] MEDS: METOPROLOL TARTRATE 25 MG TAB PO SCH (08:28)
[2018-10-04] MEDS: ASPIRIN 81 MG CHEWABLE TAB PO SCH (08:28)
[2018-10-04] MEDS: SENNOSIDES/DOCUSATE SODIUM TAB PO SCH (08:29)
--- NOTE | 2018-10-04 11:47 | ASDISCHSUM ---
Discharge Information Plan Status:Home with No Needs Medically Cleared to Leave:10/03/2018 Discharge Date:10/04/2018 10:56 AM CM D/C Disposition:Home, Routine, Self-Care ADT D/C Disposition:Home, Routine, Self-Care Projected Discharge Date:10/04/2018 12:00 AM Transportation at D/C:Family Discharge Delay Reason: Follow-Up Date:10/04/2018 12:00 AM Discharge Slot:1 - 8:01 am - 12:00 noon Final Diagnosis:Subacute occlusion of RCA with AVS s/p CABGX1 Placement Information Patient Contact Information Contact Name:ADAM Relationship: Address:[address] Work Phone: City:[place] Alternate Phone: [facility]/Zip Code:[place] [address] Email: Financial Information Financial Class:BCOP Primary Plan Desc: OUT OF STATE [facility] Primary Plan Number:[id number] Secondary Plan Desc: Secondary Plan Number: Assessment Information [facility] CM Progress Note CM Note CM Note Notes: 09/30/2018 Case Management Note Pt admitted with CP. 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 Discussed d/c needs briefly with , none were identified d/t pt family support and independence with ADL's prior to admission. There are no therapy evals ordered at this time. Case Management d/c poc: anticipating home with follow up as directed. Case Management available if needs change. Date Signed: 09/30/2018 11:34 AM Electronically Signed By:Pamella Mak RN [facility] CM Progress Note CM Note CM Note Notes: Pts case reviewed and discussed w/ NEMO Rivas. Pt had a CABG x1. PT/OT are recommending outpatient rehab follow up. Per Gurinder's note pt will d/c on Friday or Friday without any needs. CM available for changes. Plan: Independent Date Signed: 10/02/2018 02:15 PM Electronically Signed By:ANNE Rogers Case Management Discharge Plan Note Case Management Discharge Discharge Order Complete? Answers: Yes Patient to Obtain Answers: via Family Medications Transportation Arranged Answers: Family/Friends Transport will Pick (Date 10/04/2018 12:00 AM & Time) Family Notified Answers: Yes Discharge Comments Notes: Per Dane CHESTER to discharge home independently with family, no discharge needs identified. PPO coverage. CM available to support patient if any CM needs arise. Date Signed: 10/04/2018 11:46 AM Electronically Signed By:Tahmina Drew Intervention Information
--- NOTE | 2018-10-04 14:56 | PDDCSUM ---
Discharge Summary Discharge Summary: Admission Date: Discharge Date: 10/04/2018 Attending Physician: Serge Sorenson MD Dictated by: Sudha Owen PA-C Condition on Discharge: Stable Discharge Diagnosis: Unstable angina Severe CAD s/p CABG x 1 Procedures: 09/30/2018 ([place]) Emergent CABG x 1 (SVG-RCA) HPI: This is a 63yo male with no significant past medical history who presented to the ED on 09/28/2018 with complaints of 1 weeks duration of chest pressure with exertion and shortness of breath. Workup was unremarkable, however patient was advised to stay for observation and repeat Trop and EKG. Patient refused but agreed to follow up with Cardiology the following day. Patient underwent cardiac cath on 09/30/2018 where he was found to have a subtotally occluded RCA. Patient was taken emergently to the OR by Dr. Sorenson where he underwent CABG surgery. Hospital Course by Problem List: Subacute occlusion of RCA with ACS s/p emergent CABG x 1 - BB/ASA/statin for secondary prevention - CT and pacing wires removed without complications Acute blood loss anemia - Stable without the need for transfusions. Secondary thrombocytopenia likely d/t CPB - Stable at discharge Patient was taken to the OR by Dr. Sorenson on where he underwent emergent CABG x 1 with SVG to RCA. Patient tolerated the procedure well and was transferred to the ICU in stable condition. Patient was extubated without difficulty and transferred to the floor where he enjoyed an uncomplicated hospital course. Patient's tubes and wires were removed without complications. His pain was controlled, he was tolerating his diet and was deemed appropriate for discharge to home on POD4 with instructions to follow up with Dr. 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 Discharge Medications: ASA 81mg po daily Lipitor 20mg po Qhs Lisinopril 5mg po daily Metoprolol 25mg po BID [place] 5/325 1 tab po Q6hrs prn pain Vital Signs Temp Pulse Resp BP Pulse Ox 36.7 C 79 20 137/80 H 93 10/04/18 04:00 10/04/18 04:00 10/04/18 04:00 10/04/18 04:00 10/04/18 04:00 Physical Exam on Discharge: General Appearance: WD/WN, alert, no apparent distress Neck: supple Respiratory: lungs clear, normal breath sounds, other (no wheezing, rhonchi, rales. ) Cardiac/Chest: regular rate, rhythm, other (No murmurs, rubs, gallops. Sternum stable, sternotomy c/d/i. ) Abdomen: normal bowel sounds, non-tender, soft Skin: normal color, warm/dry Extremities: other (Warm, minimal lower extremity edema. ) Neuro/Psych: alert, normal mood/affect, oriented x 3 Discharge Instructions: Call [facility] cardiac rehab to enroll in phase 2 classes if not already arranged. Sternal precautions x 4 weeks. Avoid lifting > 10lbs with an outstretched arm. Avoid push/pull/lifting activities. No driving until cleared by surgery. Elevate low legs at rest. Avoid prolonged standing or dangling. Cleanse wounds once daily with soap and water. Avoid immersion (pool, hot tub, bath) until scabs/glue off. Ok to leave all wounds open to air. Avoid creams or ointments until scabs/glue fall off. Log daily vital signs once home: weight, heart rate, blood pressure, and pulse oximetry if on oxygen. Call [facility] for overnight weight gain > 2lbs, weekly gain > 5lbs or worsening leg swelling. Call [facility] for resting heart rate > 140 OR for systolic blood pressure consistently < 90 or > 140. Target oxygen saturation > 89%. Ok to use [id number] medications for bowel function. Follow up Appointments: 1. Cardiac Surgeon: Dane Sorenson MD 2. Soa Engineer 3. PCP Code Status: Full
== END 2018-10-04 10:56 | disposition home or self-care (01) | DRG 234 ==
LOC: F2W 16:40 → F2N 09-30 12:00 → OBSVTOIN 09-30 14:46 → F2W 10-01 11:45
PROVIDERS: ADMIT Thoracic Surgery (Cardiothoracic Vascular Surgery); ATTEND Thoracic Surgery (Cardiothoracic Vascular Surgery)
PROC: 06BQ4ZZ Excision of Left Saphenous Vein, Percutaneous Endoscopic Approach (ICD-10-PCS; principal; 2018-09-30 11:00)
PROC: 021009W Bypass Coronary Artery, One Artery from Aorta with Autologous Venous Tissue, Open Approach (ICD-10-PCS; principal; 2018-09-30 11:00)
PROC: 5A1221Z Performance of Cardiac Output, Continuous (ICD-10-PCS; principal; 2018-09-30 11:00)
PROC: B2111ZZ Fluoroscopy of Multiple Coronary Arteries using Low Osmolar Contrast (ICD-10-PCS; 2018-09-30 11:00)
DX: I25.110 Atherosclerotic heart disease of native coronary artery with unstable angina pectoris (principal); I24.9 Acute ischemic heart disease, unspecified; D62 Acute posthemorrhagic anemia; D69.59 Other secondary thrombocytopenia; K59.00 Constipation, unspecified
CPT/HCPCS: 82435-PO; 82565-PO; 82947-PO; 83605-PO; 84132-PO; 84295-PO; 84520-PO; 85014-PO; 97116-GP; 97161-GP; 97166-GO; 97530-GO; 97530-GP; 97535-GO; C1768; C1769; C1887; G0378; J0153; J0282; J0461; J0583; J0690; J1100; J1265; J1644; J1815; J1940; J2001; J2150; J2250; J2260; J2270; J2370; J2405; J2440; J2704; J2720; J2765; J2930; J3010; J3475; J3480; P9041; Q9967

== ENCOUNTER → 2018-10-07 | Outpatient (CLI) | payer BC | LOC: FIMAGING 11:16 | PROVIDERS: ATTEND Thoracic Surgery (Cardiothoracic Vascular Surgery) | DX: I25.10 Atherosclerotic heart disease of native coronary artery without angina pectoris (principal); Z95.1 Presence of aortocoronary bypass graft; J90 Pleural effusion, not elsewhere classified ==